=== PATIENT | female | born 1995 | race African-American/Black ===

== ENCOUNTER 2017-03-15 09:51 | Emergency (ER) | payer BC, OTHER ==
[~2017-03-15] VITALS: Ht 157.5 cm; Wt 72.5 kg
[2017-03-15 09:52] VITALS: BP 115/80; PULSE 66; RESP 16; TEMP 97.7; O2SAT 97
--- NOTE | 2017-03-15 10:56 | PD ---
Physical Exam Date Seen by Provider: Mar 15, 2017 Time Seen by Provider: 10:49 Narrative GENERAL: Well developed, well-nourished female in no acute distress. Afebrile. Ambulatory. SKIN: Focused skin assessment warm/dry. HEAD: Atraumatic. Normocephalic. EYES: Pupils equal and round. No scleral icterus. No injection or drainage. NECK: Trachea midline. No JVD. CARDIOVASCULAR: Regular rate and rhythm. No murmur appreciated. RESPIRATORY: No accessory muscle use. Clear to auscultation. Breath sounds equal bilaterally. GASTROINTESTINAL: Abdomen soft, non-tender, nondistended. Hepatic and splenic margins not palpable. Laughing during examination. No peritoneal signs. Negative heel tap test. Data Data Last Documented VS Vital Signs Date Time Temp Pulse Resp B/P (MAP) Pulse Ox O2 Delivery O2 Flow Rate FiO2 03/15/17 09:52 97.7 66 16 115/80 (92) 97 Room Air Orders Orders Ed Urine Pregnancytest Poc (03/15/17 10:44) MDM Medical Record Reviewed: Yes Supervised Visit with TALIA: Yes Differential Diagnosis Ovarian cyst, gas pain, ectopic Narrative Course Patient signed out to me. In short, this is a 22-year-old female who presented to the emergency room for evaluation of one episode of 15 minute long lower abdominal pain that occurred about 45 minutes prior to arrival. Patient is currently pain-free. She has no other associated symptoms; no fever, chills, nausea, vomiting, diarrhea, dysuria, urgency, frequency, vaginal discharge. Last menstrual cycle was one week ago. Abdomen is soft, nontender. No peritoneal signs. Patient is laughing during examination. I suspect gas pains. I spoke to my attending physician, Dr. Nayak, who agrees with plan and disposition. No indication for emergent imaging at this time. Urine test is negative. Patient is stable for outpatient follow-up. Told to return for worsening symptoms. She understands and agrees to plan. Diagnosis Primary Impression: Abdominal gas pain Referrals: Primary Care Physician Additional Instruction: Rest and drink plenty of fluids. Take ibuprofen with food as directed, as needed for pain. Follow-up with a primary care physician. Return to the emergency room for worsening symptoms. Med/Other Pt SpecificInfo: Prescription(s) given Scripts No Active Prescriptions or Reported Meds Disposition: 01 DISCHARGE HOME Condition: Stable Kalyn Bradley Mar 15, 2017 10:56
--- NOTE | 2017-03-15 10:59 | PD ---
HPI . Lower abdominal and back pain Chief Complaint: Pain: Acute or Chronic Time Seen by Provider: 10:40 Travel History International Travel<30 days: No Contact w/Intl Traveler<30days: No Traveled to known affect area: No History of Present Illness HPI This patient presents with a chief complaint of lower abdominal and back pain. Onset was at 9:00 this morning. She states that the pain was very severe at that time and lasted about 15 minutes. Her pain has now resolved. She denies any associated symptoms such as nausea, vomiting, diarrhea, urinary tract symptoms, vaginal discharge or abnormal vaginal bleeding. PFSH Past Medical History Asthma: Yes Autoimmune Disease: No Blood Disorders: No Anxiety: No Depression: No Heart Rhythm Problems: No Cardiovascular Problems: No Chest Pain: No Cystic Fibrosis: No Diminished Hearing: No Gastrointestinal Disorders: No Genitourinary: No Headaches: No Hypertension: No Musculoskeletal: No Neurologic: No Psychiatric: No Reproductive: No Respiratory: Yes Seizures: No Sickle Cell Disease: No Sleep Apnea: Yes ( INFANT AND NEEDED HOME MONITOR.) ?: Unknown LMP: 03/06/17 Past Surgical History Surgical History: No Previous Surgery Abdominal Surgery: No Cardiac Surgery: No Ear Surgery: No Endocrine Surgery: No Eye Surgery: No Genitourinary Surgery: Yes (HERNIA REPAIR AN INFANT, PT WAS PREMATURE 24 WEEKS.) Gynecologic Surgery: No Neurologic Surgery: No Oral Surgery: No Thoracic Surgery: No Other Surgery: Yes Social History Alcohol Use: No Tobacco Use: No Substance Use: No Allergies-Medications (Allergen,Severity, Reaction): Coded Allergies: promethazine (Unverified Allergy, Severe, Twitching, 12/12/16) Uncoded Allergies: CARROTS (Allergy, Severe, UNKNOWN REACTION , 07/23/05) Reported Meds & Prescriptions Reported Meds & Active Scripts Active No Active Prescriptions or Reported Medications Review of Systems Except as stated in HPI: all other systems reviewed are Neg General / Constitutional: No: Fever, Chills Gastrointestinal: Positive: Abdominal Pain, No: Nausea, Vomiting, Diarrhea Genitourinary: No: Urgency, Frequency, Dysuria, Discharge, Vaginal Bleeding Physical Exam Narrative GENERAL: Awake and smiling and in no distress. SKIN: warm/dry. HEAD: Normocephalic. Atraumatic. EYES: Pupils equal and round. No scleral icterus. No injection or drainage. ENT: No nasal bleeding or discharge. Mucous membranes pink and moist. NECK: Trachea midline. Full range of motion without pain.. CARDIOVASCULAR: Regular rate and rhythm. RESPIRATORY: No accessory muscle use. Clear to auscultation. Breath sounds equal bilaterally. GASTROINTESTINAL: Abdomen soft. Nontender. Bowel sounds present. Nondistended. MUSCULOSKELETAL: No obvious deformities. NEUROLOGICAL: Awake and alert. No obvious cranial nerve deficits. Motor grossly within normal limits. Normal speech. PSYCHIATRIC: Appropriate mood and affect; insight and judgment normal. Data Data Last Documented VS Vital Signs Date Time Temp Pulse Resp B/P (MAP) Pulse Ox O2 Delivery O2 Flow Rate FiO2 03/15/17 09:52 97.7 66 16 115/80 (92) 97 Room Air Orders Orders Ed Urine Pregnancytest Poc (03/15/17 10:44) [facility] Medical Decision Making Medical Screen Exam Complete: Yes Emergency Medical Condition: Yes Differential Diagnosis Differential diagnosis of pelvic pain includes but is not limited to UTI, PID, ectopic , spontaneous AB, constipation, viral illness Narrative Course This patient presents with pelvic pain that started this morning and which lasted 15 minutes and which spontaneously resolved. She has a totally benign exam. We will check a test. Diagnosis Primary Impression: Abdominal gas pain Referrals: Primary Care Physician Additional Instructions: Rest and drink plenty of fluids. Take ibuprofen with food as directed, as needed for pain. Follow-up with a primary care physician. Return to the emergency room for worsening symptoms. Scripts No Active Prescriptions or Reported Meds Disposition: 01 DISCHARGE HOME Condition: Stable Alethea Nayak MD Mar 15, 2017 10:59
== END 2017-03-15 11:50 | disposition home or self-care (01) ==
LOC: NEPD 09:51
DX: R14.3 Flatulence (principal); R10.2 Pelvic and perineal pain; J45.909 Unspecified asthma, uncomplicated; Z88.5 Allergy status to narcotic agent
CPT/HCPCS: 84703; 99283